=== PATIENT | female | born 1945 | race Caucasian/White ===

== ENCOUNTER 2023-11-29 10:46 | Emergency (ER) | payer MEDICARE, OTHER, SELFPAY ==
[2023-11-29 10:52] VITALS: BP 163/80
--- NOTE | 2023-11-29 11:53 | ED.GENMED ---
History of Present Illness
<Neetu Lomax PA-C - Last Filed: 11/29/23 15:11>
General
Chief Complaint: Bowel Problem
Source: patient
Exam Limitations: none
Time Seen by Provider: 11/29/23 11:53
Nursing documentation reviewed up to this point in time: agreed with
Travel History
Have you had any contact with someone who has COVID-19?: No
Do you have any symptoms of coronavirus? Fever > 100 degrees, chills, cough, shortness of breath, sore throat, loss of taste or smell, muscle aches, or headache?: No
History of Present Illness
History of Present Illness:
78-year-old female with a past medical history of hypertension, coronary artery disease, bladder cancer, GERD presenting emergency department today with concerns of constipation and rectal pain x 1 day. Patient states that she feels that there is a
a lot of stool in her rectum and she cannot effectively move her bowels. Patient states that her last bowel movement was yesterday, and she states that she usually has regular bowel movements however, today she is so much discomfort when trying to
strain, and feels that there is stool about to come out but she cannot quite get it out. Patient states that she normally takes a fiber supplement daily, and she takes Colace sometimes. She took Colace this morning which did not help. Patient's
rectal pain started today. Patient does have a history of hemorrhoids, for which she occasionally will have pain and she will use hydrocortisone cream. She states that she is not had rectal pain the past few days and just started today. Patient
denies fevers or chills, nausea or vomiting, abdominal pain. 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
Past History
<Neetu Lomax PA-C - Last Filed: 11/29/23 15:11>
Past History
ED Past Medical History: GERD, HTN and Other (Cataracts, colitis, glaucoma)
ED Past Surgical History: Orthopedic (bilateral knee replacements)
Social History
Tobacco: Non-smoker
Personal: Single
Living: with family
Review of Systems
<Neetu Lomax PA-C - Last Filed: 11/29/23 15:11>
Review of Systems
All Other Systems: ROS reviewed and negative except as documented in HPI and ROS
Phy Exam
<Neetu Lomax PA-C - Last Filed: 11/29/23 15:11>
Physical Exam
Physical Exam:
General: Patient is well appearing, and in no acute distress
Skin: Warm and dry, no rashes or lesions
Head: Atraumatic, normocephalic
Cardiac: Regular rate and rhythm, no murmur
Pulm: Normal respiratory effort, no wheezes, rales, rhonchi
Abdomen: Patient has no abdominal tenderness to palpation
Rectal: There redness within the intergluteal folds. There is no tenderness palpation of the intergluteal fold. No palpable areas of fluctuance. No obvious perirectal abscess, no anal fissure/tear. No expression of internal hemorrhoid with
bearing down. No obvious external hemorrhoid. Rectal fault with stool, rectum disimpacted, stool loosened.
Neuro: AAOx3. CN II-XII intact.
Course
<Neetu Lomax PA-C - Last Filed: 11/29/23 15:11>
Vital Signs
Initial and Last Documented VS:
Initial Vital Signs
Temp Pulse Resp BP Pulse Ox
98.0 F 110 16 163/80 96
11/29/23 10:52 11/29/23 10:52 11/29/23 10:52 11/29/23 10:52 11/29/23 10:52
Last Documented Vital Signs
Temp Pulse Resp BP Pulse Ox
98.0 F 98 17 160/78 97
11/29/23 10:52 11/29/23 14:43 11/29/23 14:43 11/29/23 14:43 11/29/23 14:43
<Eugenio Camacho MD - Last Filed: 11/29/23 15:12>
Vital Signs
Initial and Last Documented VS:
Initial Vital Signs
Temp Pulse Resp BP Pulse Ox
98.0 F 110 16 163/80 96
11/29/23 10:52 11/29/23 10:52 11/29/23 10:52 11/29/23 10:52 11/29/23 10:52
Last Documented Vital Signs
Temp Pulse Resp BP Pulse Ox
98.0 F 98 17 160/78 97
11/29/23 10:52 11/29/23 14:43 11/29/23 14:43 11/29/23 14:43 11/29/23 14:43
<Neetu Lomax PA-C - Last Filed: 11/29/23 15:11>
MDM/Problems Addressed
Differential Diagnosis Includes:
Constipation, perirectal abscess, thrombosed hemorrhoid, anal fissure, rectal cancer
MDM/Problems Addressed:
rectal pressure
constipation
Chronic conditions affecting care: HTN and CAD
Acute Exacerbation and/or Progression of Chronic Illness: HTN
<Neetu Lomax PA-C - Last Filed: 11/29/23 15:11>
*Pulse Oximetry
Patient hypoxic: no
*Critical Care Note
Total Time (30-74mins, 75-104mins- exclusive of procedures): Not Applicable
<Neetu Lomax PA-C - Last Filed: 11/29/23 15:11>
Patient Management
Escalation/DeEscalation of care consider admission/obs:
78-year-old female with a past medical history of hypertension, coronary artery disease, bladder cancer, GERD presenting emergency department today with concerns of constipation and rectal pain x 1 day. Patient states that she feels that there is a
a lot of stool in her rectum and she cannot effectively move her bowels. On exam, patient has no abdominal tenderness, her vitals are stable, she has no perirectal abscess, new gluteal rash, and has a rectal vault full with stool. Patient was
disimpacted, lots of stool was expressed. No obvious hemorrhoid on exam. Patient was subsequently given enema which further helped to move her bowels and she had a full bowel movement. Patient feels well now. Patient stable for discharge. She
will follow up with her primary care provider and her GI doc.
ED Attending Note
<Neetu Lomax PA-C - Last Filed: 11/29/23 15:11>
-
Portions of this chart may have been created with voice recognition software.� Occasional wrong word or��sound alike� substitutions may have occurred due to the inherent limitations of voice recognition software.
<Eugenio Camacho MD - Last Filed: 11/29/23 15:12>
ED Attending Note
Patient seen and examined by attending physician: Yes
I performed the substantive portion of visit, reviewed & personally made and approve the management plan that is documented in note by myself or MARIA R.: Yes
ED Attending Note:
Rectal pressure and pain. Mostly when moving her bowels. Feels like she is blocked up. No abdominal pain nausea vomiting or other complaints. Patient was seen after her disimpaction and enema. Appears well and has some rectal pressure but no
other complaints
She is warm and dry perfusing well. Abdomen nontender. No distention. No respiratory distress. Good regular pulses. Rectal exam no obvious abnormalities. She has some perirectal inflammatory changes but no masses no large hemorrhoid. Stable
for discharge to follow-up
Discharge Plan
Departure
Patient Disposition: Home (Routine Discharge)
Date of Disposition: 11/29/23
Time of Disposition: 14:10
Patient with high blood pressure during this ER visit?: Yes
Condition: Good
Discharge Problem:
Fecal impaction
Instructions: Constipation in adults, Fecal Impaction (DC), BLOOD PRESSURE
Prescriptions:
No Action
guar gum 1 PKT packet
1 pkt PO DAILY
esomeprazole magnesium [Nexium] 40 MG capsule,delayed release(DR/EC)
40 mg PO DAILY
budesonide 3 MG capsule,delayed,extend.release
6 mg PO DAILY
tafluprost (PF) [Zioptan (PF)] 1 EACH dropperette
1 drp BOTH EYES HS
cranberry ijrp-F-vlxsggph coag [Stdrqljsu-Streluvxv-Ugzyekg C] 1 EACH tablet
1 ea PO DAILY
coenzyme Q10-vit E-vit E mixed 1 EACH capsule
1 ea PO DAILY
dorzolamide-timolol 1 DROP drops
1 drp BOTH EYES BID
cholecalciferol (vitamin D3) 1,000 UNITS tablet
1,000 units PO DAILY
atorvastatin 40 MG tablet
40 mg PO QPM Qty: 30 3RF
aspirin 81 MG tablet,chewable
81 mg PO DAILY 0RF
ticagrelor [Brilinta] 90 MG tablet
90 mg PO BID Qty: 60 3RF
metoprolol succinate 25 MG tablet extended release 24 hr
25 mg PO QPM
potassium chloride [Klor-Con] 20 MEQ packet
20 meq PO DAILY
furosemide [Lasix] 20 MG tablet
20 mg PO DAILY
guar gum 1 PKT packet
1 pkt PO BID
midodrine 5 MG tablet
5 mg PO TID@0800,1400,2200 0RF
metronidazole 500 MG tablet
500 mg PO Q8 Qty: 18 0RF
sulfamethoxazole-trimethoprim 1 TABLET tablet
1 tab PO BID Qty: 12 0RF
ferrous sulfate [FeroSul] 325 MG tablet
325 mg PO TID 0RF
Referrals:
Jean Goldstein DO [Family Provider] -
Activity Restrictions/Additional Instructions:
Please continue fiber supplementation daily.
Please follow-up with your supervisor toy assembly, please follow-up with your primary care provider.
Please return emergency department should you experience rectal bleeding, abdominal pain, dizziness, lightheadedness, chest pain, shortness of breath or other concerning signs or symptoms.
Interventions
Interventions:
*Risk Screen - Suicide Last Done: 11/29/23 12:02
*General Assessment Last Done: 11/29/23 12:02
*Neglect/Abuse Screening Last Done: 11/29/23 12:02
*ED COVID-19 Vaccine History Last Done: 11/29/23 10:52
*Nursing Disposition Last Done: 11/29/23 14:44
OH-Xauots-Pzbmsdhkqw Assessment Last Done: 11/29/23 12:10
Discharge Date and Time
Discharge Date/Time: 11/29/23 14:45
[2023-11-29 12:01] VITALS: BMI 27.2
[2023-11-29 14:43] VITALS: BP 160/78
== END 2023-11-29 14:45 | disposition home or self-care (01) ==
LOC: EMR 10:46
PROVIDERS: EMERGENCY PHYSICIAN Emergency Medicine; FAMILY PHYSICIAN Family Medicine
DX: K56.41 Fecal impaction (principal); I10 Essential (primary) hypertension; I25.10 Atherosclerotic heart disease of native coronary artery without angina pectoris; K21.9 Gastro-esophageal reflux disease without esophagitis; K52.9 Noninfective gastroenteritis and colitis, unspecified; H40.9 Unspecified glaucoma; M81.0 Age-related osteoporosis without current pathological fracture; M48.00 Spinal stenosis, site unspecified; I25.2 Old myocardial infarction; Z79.82 Long term (current) use of aspirin; Z95.5 Presence of coronary angioplasty implant and graft; Z96.653 Presence of artificial knee joint, bilateral; Z85.54 Personal history of malignant neoplasm of ureter; Z85.89 Personal history of malignant neoplasm of other organs and systems; Z85.51 Personal history of malignant neoplasm of bladder; Z87.891 Personal history of nicotine dependence; Z88.1 Allergy status to other antibiotic agents; Z88.0 Allergy status to penicillin; Z88.2 Allergy status to sulfonamides
CPT/HCPCS: 99282

== ENCOUNTER 2023-12-22 10:51 | Emergency (ER) | payer MEDICARE, OTHER, SELFPAY ==
[2023-12-22 11:00] VITALS: BP 157/70
[2023-12-22 14:00] VITALS: BP 149/73
--- NOTE | 2023-12-22 16:16 | ED.GENMED ---
History of Present Illness
General
Chief Complaint: Bowel Problem
Source: patient
Time Seen by Provider: 12/22/23 12:54
Travel History
Have you had any contact with someone who has COVID-19?: No
Do you have any symptoms of coronavirus? Fever > 100 degrees, chills, cough, shortness of breath, sore throat, loss of taste or smell, muscle aches, or headache?: No
History of Present Illness
History of Present Illness:
78-year-old female who presents feeling constipated. States this has happened before. She states sometimes she has loose bowels at home so has been taking antidiarrheals. She was advised last time to take MiraLAX. She states she feels pressure
in her rectum.
Past History
Past History
ED Past Medical History: GERD, HTN and Other (Cataracts, colitis, glaucoma)
ED Past Surgical History: Orthopedic (bilateral knee replacements)
Social History
Tobacco: Non-smoker
Personal: Single
Living: with family
Phy Exam
Physical Exam
Physical Exam:
CONSTITUTIONAL Patient alert and oriented to person, place and time. Well-appearing. Vital signs reviewed.
HEAD atraumatic, normocephalic.
EYES eyelids normal to inspection, Extraocular muscles intact, Conjunctiva normal, Sclera normal.
NECK normal range of motion, Trachea midline, no jugular venous distention.
RESPIRATORY CHEST No respiratory distress noted, Chest expansion equal,
ABDOMEN abdomen nontender, Bowel sounds normal. No distention.
Rectal exam soft stool noted in vault, no blood
BACK normal inspection, no obvious deformities
UPPER EXTREMITY range of motion normal, Motor strength normal, no cyanosis, no edema.
LOWER EXTREMITY range of motion normal, Motor strength normal, no cyanosis, no edema.
NEURO Speech normal, No focal motor deficits, Darcy coma scale 15, Memory normal, Cranial Nerves intact to screening exam.
SKIN skin warm, dry, and normal in color.
PSYCHIATRIC patient oriented to person place and time, Normal affect.
Course
Orders/Labs/Results
Orders:
Orders
12/22/23 12:54
Abdomen Xray - 1 View [CR Abdomen - 1 View] Urgent
Comment:
Reason For Exam: abd pain
12/22/23 13:50
Enema- Treatment ONCE
Type: Milk of Molasses
Vital Signs
Initial and Last Documented VS:
Initial Vital Signs
Temp Pulse Resp BP Pulse Ox
98.0 F 72 18 157/70 99
12/22/23 11:00 12/22/23 11:00 12/22/23 11:00 12/22/23 11:00 12/22/23 11:00
Last Documented Vital Signs
Temp Pulse Resp BP Pulse Ox
97.8 F 80 18 174/90 96
12/22/23 17:08 12/22/23 17:08 12/22/23 17:08 12/22/23 17:08 12/22/23 17:08
MDM/Problems Addressed
MDM/Problems Addressed:
Rectal impaction, constipation
*Radiology
Radiology exam reviewed: preliminary read by ED provider (No free air, constipation)
*Pulse Oximetry
Patient hypoxic: no
*Critical Care Note
Total Time (30-74mins, 75-104mins- exclusive of procedures): Not Applicable
Data Reviewed
Source: patient
Further Testing Considered But Not Given:
Considered CT but abdomen benign
Patient Management
Escalation/DeEscalation of care consider admission/obs:
Symptoms resolved after enema. Appears well. Okay for discharge. Recommend MiraLAX and to avoid antidiarrheals. Advise GI follow-up
ED Attending Note
-
Portions of this chart may have been created with voice recognition software.� Occasional wrong word or��sound alike� substitutions may have occurred due to the inherent limitations of voice recognition software.
Discharge Plan
Departure
Patient Disposition: Home (Routine Discharge)
Date of Disposition: 12/22/23
Time of Disposition: 16:16
Patient with high blood pressure during this ER visit?: Yes
Discharge Problem:
Constipation
Instructions: Constipation, Adult (DC), BLOOD PRESSURE
Prescriptions:
No Action
guar gum 1 PKT packet
1 pkt PO DAILY
esomeprazole magnesium [Nexium] 40 MG capsule,delayed release(DR/EC)
40 mg PO DAILY
budesonide 3 MG capsule,delayed,extend.release
6 mg PO DAILY
tafluprost (PF) [Zioptan (PF)] 1 EACH dropperette
1 drp BOTH EYES HS
cranberry jftf-L-iwoszmdu coag [Djadefkxl-Wnbuyalvd-Gdhsigz C] 1 EACH tablet
1 ea PO DAILY
coenzyme Q10-vit E-vit E mixed 1 EACH capsule
1 ea PO DAILY
dorzolamide-timolol 1 DROP drops
1 drp BOTH EYES BID
cholecalciferol (vitamin D3) 1,000 UNITS tablet
1,000 units PO DAILY
atorvastatin 40 MG tablet
40 mg PO QPM Qty: 30 3RF
aspirin 81 MG tablet,chewable
81 mg PO DAILY 0RF
ticagrelor [Brilinta] 90 MG tablet
90 mg PO BID Qty: 60 3RF
metoprolol succinate 25 MG tablet extended release 24 hr
25 mg PO QPM
potassium chloride [Klor-Con] 20 MEQ packet
20 meq PO DAILY
furosemide [Lasix] 20 MG tablet
20 mg PO DAILY
guar gum 1 PKT packet
1 pkt PO BID
midodrine 5 MG tablet
5 mg PO TID@0800,1400,2200 0RF
metronidazole 500 MG tablet
500 mg PO Q8 Qty: 18 0RF
sulfamethoxazole-trimethoprim 1 TABLET tablet
1 tab PO BID Qty: 12 0RF
ferrous sulfate [FeroSul] 325 MG tablet
325 mg PO TID 0RF
Referrals:
Jean Goldstein DO [Family Provider] -
Activity Restrictions/Additional Instructions:
Please avoid antidiarrheals. Please use MiraLAX daily until stools are soft. Please see your doctor or gastroenterology in the next 3 to 5 days for follow-up and reevaluation. Return to [facility] for abdominal pain, fevers, vomiting or any other
concerns.
Interventions
Interventions:
*Risk Screen - Suicide Last Done: 12/22/23 14:46
*General Assessment Last Done: 12/22/23 14:46
*Neglect/Abuse Screening Last Done: 12/22/23 14:47
ED- Fall Risk Assessment Last Done: 12/22/23 14:48
*ED COVID-19 Vaccine History Last Done: 12/22/23 14:46
*Nursing Disposition Last Done: 12/22/23 17:09
HQ-Aqcveo-Pafnnrsaxo Assessment Last Done: 12/22/23 14:47
Discharge Date and Time
Discharge Date/Time: 12/22/23 17:10
Print Language: HUNGARIAN
[2023-12-22 17:08] VITALS: BP 174/90
== END 2023-12-22 17:10 | disposition home or self-care (01) ==
LOC: EMR 10:51
PROVIDERS: EMERGENCY PHYSICIAN Emergency Medicine; FAMILY PHYSICIAN Family Medicine
DX: K59.00 Constipation, unspecified (principal); I10 Essential (primary) hypertension
CPT/HCPCS: 99283; 74018

== ENCOUNTER 2024-09-02 12:09 | Emergency (ER) | payer MEDICARE, OTHER, SELFPAY ==
[2024-09-02 12:12] VITALS: BP 167/68
[2024-09-02 13:35] VITALS: BMI 29.5
--- NOTE | 2024-09-02 13:39 | ED.GENMED ---
History of Present Illness
General
Chief Complaint: Urinary Symptoms
Source: patient
Time Seen by Provider: 09/02/24 13:06
History of Present Illness
History of Present Illness:
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
presenting to the emergency department at request of primary care provider after for the last few weeks patient has been dealing with urinary symptoms and treated with oral antibiotics at urgent care, had a new urinalysis and culture done a few days
ago by primary care provider which showed multidrug-resistant ESBL E. coli and was recommended to come to the ER for IV antibiotic infusions. Patient stating currently she feels quite well and is denying any urinary frequency/urgency but does still
note some discomfort within the vaginal region. She denies any fevers or flank pain, vomiting, nausea, bowel changes. No other concerns at this time.
Past History
Past History
ED Past Medical History: GERD, HTN and Other (Cataracts, colitis, glaucoma)
ED Past Surgical History: Orthopedic (bilateral knee replacements)
Social History
Tobacco: Non-smoker
Alcohol: None
Drug: None
Personal: Single
Living: with family
Review of Systems
Review of Systems
All Other Systems: ROS reviewed and negative except as documented in HPI and ROS
Phy Exam
Physical Exam
Physical Exam:
GENERAL: Alert , in no apparent distress
EYE: clear conjunctiva b/l
HEAD: NCAT
ENT: o/p clr, mmm.
ABDOMEN: Soft, without focal tenderness, no r/g, no cvat
NEUROLOGICAL: Alert and oriented
SKIN: Warm and dry, skin intact.
MUSCULOSKELETAL: No edema, well perfused.
PSYCH: Normal and appropriate interaction.
Scores
Heart Failure Risk
Heart Failure Risk Score: Not Applicable
Heart Score for Chest Pain Patients
STEMI patient?: Not applicable
Withdrawal Assessment of Alcohol
Withdrawal Assessment Completed?: Not applicable
Course
Orders/Labs/Results
Orders:
Orders
09/02/24 13:32
Case Management Consult ONCE
Case Management Consult: Infusion Department
09/02/24 13:34
Urinalysis Reflex To Culture Urgent
Date Specimen was Collected: 09/02/24
Time Specimen was Collected: 13:33
Urine Microscopic Reflex Cult Urgent
Urine Culture Urgent
JIMBO Source: U
Specimen Description:
Date Specimen was Collected: 09/02/24
Time Specimen was Collected: 13:33
09/02/24 14:08
Basic Metabolic Panel Urgent
Complete Blood Count/With Diff Urgent
09/02/24 14:44
Ertapenem [Invanz] 1,000 mg 0.9% Sodium Chloride [Nss] 50 ml IV NOW
Abnormal Lab Results
09/02/24 09/02/24
13:34 14:08
RBC 3.56 L 10^6/uL
(4.20-5.40)
Hgb 11.1 L g/dL
(12.0-16.0)
Hct 34.7 L %
(37.0-47.0)
MCH 31.2 H pg
(27.0-31.0)
MCHC 32.0 L g/dL
(33.0-37.0)
MPV 10.7 H fL
(7.4-10.4)
Absolute Lymphs (auto) 1.0 L 10^3/uL
(1.2-3.4)
Absolute Monos (auto) 0.7 H 10^3/uL
(0.1-0.6)
Absolute Eos (auto) 1.7 H 10^3/uL
(0-0.7)
Lymphocytes % 11.5 L %
(20.5-51.1)
Eosinophils % 19.4 H %
(0-6)
BUN 26 H mg/dl
(7-17)
Ur Occult Blood Reflex Trace A
(Negative)
Urine Nitrite (Reflex) Positive A
(Negative)
Leukocyte Esterase Rfl 2+ A
(Negative)
Urine WBC (Reflex) 80-90 A /HPF
(0-5)
Urine Bacteria (Reflex) Many A
(Negative)
09/02/24 14:08
09/02/24 14:08
Vital Signs
Initial and Last Documented VS:
Initial Vital Signs
Temp Pulse Resp BP Pulse Ox
97.9 F 78 18 167/68 100
09/02/24 12:12 09/02/24 12:12 09/02/24 12:12 09/02/24 12:12 09/02/24 12:12
Last Documented Vital Signs
Temp Pulse Resp BP Pulse Ox
97.9 F 76 18 152/81 99
09/02/24 12:12 09/02/24 16:00 09/02/24 16:00 09/02/24 16:00 09/02/24 16:00
MDM/Problems Addressed
Differential Diagnosis Includes:
Multidrug-resistant urinary tract infection, currently no symptoms to suggest pyelonephritis or sepsis
MDM/Problems Addressed:
79-year-old female presenting to the ER at request of primary care provider for evaluation and treatment of multidrug-resistant ESBL E. coli urinary tract infection. Patient brought her culture report from the urgent care which she also states was
the same as the 1 done by her primary care provider which does show susceptibilities to ertapenem, meropenem and Bactrim however patient has a sulfa allergy and unable to tolerate Bactrim. She had finished a dose of ciprofloxacin earlier in the
week last. Primary care provider recommended to come to the ER for IV antibiotics and possible admission or possibility to arrange for outpatient infusion or home infusions. I notified infectious disease who agrees with this plan and would
recommend a 10 to 14-day course of ertapenem. Will consult with case management to see about arranging for the outpatient treatment. If able to do so we will arrange for patient to obtain a midline or PICC line in the ER. Disposition pending.
Chronic conditions affecting care: Cancer
Acute Exacerbation and/or Progression of Chronic Illness: Other (Urinary tract infections)
*Pulse Oximetry
Patient hypoxic: no
*Critical Care Note
Total Time (30-74mins, 75-104mins- exclusive of procedures): Not Applicable
Data Reviewed
Review of Other/Old Records Reveals: Labs and Records
Patient Management
Social determinants of health affecting care: Strong social support
Discussion with other providers: PCP and [employer]
Escalation/DeEscalation of care consider admission/obs:
Case management was able to arrange for patient to have home infusion however they would be unable to come out until September 05 due to the holiday. Patient does not wish to stay in the hospital. She will return to the emergency department on
September 03 and for the 1 g Invanz infusions and then can be discharged back home. Patient and family are aware of return precautions to the emergency department. Stable for discharge home.
ED Attending Note
-
Portions of this chart may have been created with voice recognition software.� Occasional wrong word or��sound alike� substitutions may have occurred due to the inherent limitations of voice recognition software.
Discharge Plan
Departure
Patient Disposition: Home (Routine Discharge)
Date of Disposition: 09/02/24
Time of Disposition: 15:45
Patient with high blood pressure during this ER visit?: Yes
Discharge Problem:
Complicated urinary tract infection
Instructions: Urinary Tract Infection, Adult (DC)
Prescriptions:
No Action
guar gum 1 PKT packet
1 pkt PO DAILY
esomeprazole magnesium [Nexium] 40 MG capsule,delayed release(DR/EC)
40 mg PO DAILY
budesonide 3 MG capsule,delayed,extend.release
6 mg PO DAILY
tafluprost (PF) [Zioptan (PF)] 1 EACH dropperette
1 drp BOTH EYES HS
cranberry wnkv-V-dymdhnzf coag [Gmfhdmtal-Lucsgjnry-Rystrzl C] 1 EACH tablet
1 ea PO DAILY
coenzyme Q10-vit E-vit E mixed 1 EACH capsule
1 ea PO DAILY
dorzolamide-timolol 1 DROP drops
1 drp BOTH EYES BID
cholecalciferol (vitamin D3) 1,000 UNITS tablet
1,000 units PO DAILY
atorvastatin 40 MG tablet
40 mg PO QPM Qty: 30 3RF
aspirin 81 MG tablet,chewable
81 mg PO DAILY 0RF
ticagrelor [Brilinta] 90 MG tablet
90 mg PO BID Qty: 60 3RF
metoprolol succinate 25 MG tablet extended release 24 hr
25 mg PO QPM
potassium chloride [Klor-Con] 20 MEQ packet
20 meq PO DAILY
furosemide [Lasix] 20 MG tablet
20 mg PO DAILY
guar gum 1 PKT packet
1 pkt PO BID
midodrine 5 MG tablet
5 mg PO TID@0800,1400,2200 0RF
metronidazole 500 MG tablet
500 mg PO Q8 Qty: 18 0RF
sulfamethoxazole-trimethoprim 1 TABLET tablet
1 tab PO BID Qty: 12 0RF
ferrous sulfate [FeroSul] 325 MG tablet
325 mg PO TID 0RF
Referrals:
Jean Goldstein DO [Family Provider] -
Interventions
Interventions:
*Risk Screen - Suicide Last Done: 09/02/24 12:12
*General Assessment Last Done: 09/02/24 12:12
*Neglect/Abuse Screening Last Done: 09/02/24 12:12
ED- Fall Risk Assessment Last Done: 09/02/24 17:18
*ED COVID-19 Vaccine History Last Done: 09/02/24 13:35
*Nursing Disposition Last Done: 09/02/24 17:18
ED-Female Genitourinary Assessment Last Done: 09/02/24 13:35
Discharge Date and Time
Discharge Date/Time: 09/02/24 17:00
Print Language: GREEK
[2024-09-02 14:00] VITALS: BP 163/71
[2024-09-02 14:09] LABS: Urine Albumin Trace (Neg - Trace); Urine Bilirubin Negative (Negative); Urine Character Slightly Cloudy (Clear); Urine Color Yellow; Urine Glucose Negative (Negative); Urine Ketone Negative (Negative); Urine Leukocyte 2+ (Negative); Urine Nitrite Positive (Negative); Urine Occult Blood Trace (Negative); Urine Urobilinogen Negative (Neg - 1+)
--- NOTE | 2024-09-02 14:14 | CM ---
Addendum entered by Kirsten Painting RN 09/06/24 12:33:
CM received called from patient's hosiery repairer Clarisse [phone]. Clarisse stated that [facility] has concerns about patient and caregiver's ability to do home IV antibiotics. [facility] is going to see patient through the weekend for her doses and
plan to transition to OID on Monday. Clarisse stated that PCP, who sent patient into hospital for IV antibiotics, is now refusing to write a script to set up outpatient infusion services. CM faxed original script to [facility] to assist with planning.
CM spoke with Steffen, clinical nurse nurse care manager, at [facility] who confirmed that patient will be seen through the weekend. CM advised that PCP is unwilling to write script for patient's OID services. Kirk will follow up with Clarisse at patient's PCP. CM
will await update.
Addendum entered by Kirsten Painting RN 09/02/24 16:46:
[facility] will deliver medication and supplies on 09/05. [facility] is also able to see patient on 09/05. ED PA is agreeable to provide doses for 09/03 and 09/04 in the emergency room. CM confirmed plan with Nay from [facility] and Joan from [facility].
Patient and caregiver are agreeable to plan.
Addendum entered by Kirsten Painting RN 09/02/24 15:27:
[facility] can accept. [facility] is not able to service patient tomorrow. CM sent referral to [facility]
Addendum entered by Kirsten Painting RN 09/02/24 14:40:
CM updated referrals with midline information and IV antibiotic script.
Original Note:
CM spoke with Joan from [facility]. CM sent referral via [facility] to [facility] and [facility]. CM awaiting call back from Joan at [facility].
[2024-09-02 14:16] LABS: Urine Squamous Cell 0-2 /LPF (Few); Urine White Cell 80-90 /HPF (0-5)
[2024-09-02 14:17] LABS: Urine Bacteria Many (Negative); Urine Red Blood Cell 0-2 /HPF (0-2)
[2024-09-02 14:30] LABS: Blood Urea Nitrogen 26 mg/dl (7-17); Calcium 9.4 mg/dl (8.4-10.2); Carbon Dioxide 26 mmol/L (22-30); Chloride 104 mmol/L (98-107); Estimated Creatinine Clearance 35 ml/min; Glucose 94 mg/dl (70-99); Potassium 4.1 mmol/L (3.5-5.1); Sodium 136 mmol/L (135-145)
[2024-09-02 14:34] LABS: White Blood Cell Count 8.8 10^3/uL (4.8-10.8)
[2024-09-02 14:35] LABS: % Basophils 0.8 % (0-2); % Eosinophils 19.4 % (0-6); % Immature Granulocytes 0.3 % (0-0.5); % Lymphocytes 11.5 % (20.5-51.1); % Monocytes 8.1 % (1.7-9.3); % Neutrophils 59.9 % (42.2-75.2); Absolute Basophils 0.1 10^3/uL (0-0.2); Absolute Eosinophils 1.7 10^3/uL (0-0.7); Absolute Monocytes 0.7 10^3/uL (0.1-0.6); Absolute Neutrophils 5.3 10^3/uL (1.4-6.5); Hematocrit 34.7 % (37.0-47.0); Hemoglobin 11.1 g/dL (12.0-16.0); Mean Corpuscular Hgb 31.2 pg (27.0-31.0); Mean Corpuscular Volume 97.5 fL (81.0-99.0); Nucleated Red Blood Cells % 0 %; Red Blood Cell Count 3.56 10^6/uL (4.20-5.40); Red Cell Dist. Width 14.2 % (11.5-14.5)
[2024-09-02 14:57] LABS: Platelet Count 144 10^3/uL (130-400)
[2024-09-02 14:58] LABS: Mean Platelet Volume 10.7 fL (7.4-10.4)
[2024-09-02] MEDS: INVANZ 60 MG IV (15:18)
[2024-09-02 16:00] VITALS: BP 152/81
== END 2024-09-02 17:00 | disposition home or self-care (01) ==
LOC: EMR 12:09
PROVIDERS: Physician Assistant Medical; EMERGENCY PHYSICIAN Emergency Medicine; FAMILY PHYSICIAN Family Medicine
DX: N39.0 Urinary tract infection, site not specified (principal); B96.20 Unspecified Escherichia coli [E. coli] as the cause of diseases classified elsewhere; I10 Essential (primary) hypertension; I25.2 Old myocardial infarction; K21.9 Gastro-esophageal reflux disease without esophagitis; Z88.2 Allergy status to sulfonamides; Z85.54 Personal history of malignant neoplasm of ureter; Z92.3 Personal history of irradiation
CPT/HCPCS: 96365; 99284; 80048; 81003; 81015; 85025; 87077; 87086; 87186; J1335

== ENCOUNTER 2024-09-03 08:59 | Emergency (ER) | payer MEDICARE, OTHER, SELFPAY ==
[2024-09-03 09:06] VITALS: BP 125/46
--- NOTE | 2024-09-03 09:13 | ED.GENMED ---
History of Present Illness
General
Chief Complaint: Prescription Refill
Source: patient
Time Seen by Provider: 09/03/24 09:04
History of Present Illness
History of Present Illness:
79-year-old female presents back to the emergency department for the second dose of her Invanz infusion. Patient was seen in this emergency department by myself yesterday where she was diagnosed with a complicated urinary tract infection that was
only susceptible to IV medications. Patient had home infusion set up by case management however they were unable to come out patient's home until September 05 due to the holidays. Patient has no concerns at this time.
Past History
Past History
ED Past Medical History: GERD, HTN and Other (Cataracts, colitis, glaucoma)
ED Past Surgical History: Orthopedic (bilateral knee replacements)
Social History
Tobacco: Non-smoker
Alcohol: None
Drug: None
Personal: Single
Living: with family
Review of Systems
Review of Systems
All Other Systems: ROS reviewed and negative except as documented in HPI and ROS
Phy Exam
Physical Exam
Physical Exam:
GENERAL: Alert , in no apparent distress
EYE: conjunctiva clear
Head: Normocephalic atraumatic
NECK: Supple,
ENT: mmm.
LUNGS: no acute respiratory distress
NEUROLOGICAL: Alert and oriented
SKIN: Warm and dry, skin intact.
MUSCULOSKELETAL: well perfused.
PSYCH: Normal and appropriate interaction.
Scores
Heart Failure Risk
Heart Failure Risk Score: Not Applicable
Heart Score for Chest Pain Patients
STEMI patient?: Not applicable
Withdrawal Assessment of Alcohol
Withdrawal Assessment Completed?: Not applicable
Course
Orders/Labs/Results
Orders:
Orders
09/03/24 09:08
Ertapenem [Invanz] 1,000 mg 0.9% Sodium Chloride [Nss] 50 ml IV NOW
Vital Signs
Initial and Last Documented VS:
Initial Vital Signs
Temp Pulse Resp BP Pulse Ox
98.2 F 60 17 125/46 98
09/03/24 09:06 09/03/24 09:06 09/03/24 09:06 09/03/24 09:06 09/03/24 09:06
Last Documented Vital Signs
Temp Pulse Resp BP Pulse Ox
98.2 F 60 17 125/46 98
09/03/24 09:06 09/03/24 09:06 09/03/24 09:06 09/03/24 09:06 09/03/24 09:06
MDM/Problems Addressed
MDM/Problems Addressed:
79-year-old female presenting back to the emergency department for second dose of her IV Invanz. Patient will be stable for discharge upon completion. She will come back to the emergency department tomorrow for third dose and then will have the
home infusion nurses come to her house for the remaining days. Patient continues to be aware of this plan and has no further concerns at this time.
*Pulse Oximetry
Patient hypoxic: no
*Critical Care Note
Total Time (30-74mins, 75-104mins- exclusive of procedures): Not Applicable
ED Attending Note
-
Portions of this chart may have been created with voice recognition software.� Occasional wrong word or��sound alike� substitutions may have occurred due to the inherent limitations of voice recognition software.
Discharge Plan
Departure
Patient Disposition: Home (Routine Discharge)
Date of Disposition: 09/03/24
Time of Disposition: 09:53
Patient with high blood pressure during this ER visit?: No
Discharge Problem:
Encounter for long-term (current) use of antibiotics
Prescriptions:
No Action
guar gum 1 PKT packet
1 pkt PO DAILY
esomeprazole magnesium [Nexium] 40 MG capsule,delayed release(DR/EC)
40 mg PO DAILY
budesonide 3 MG capsule,delayed,extend.release
6 mg PO DAILY
tafluprost (PF) [Zioptan (PF)] 1 EACH dropperette
1 drp BOTH EYES HS
cranberry mmse-Z-skjteblg coag [Klbixqyxf-Hixccsptd-Aipleej C] 1 EACH tablet
1 ea PO DAILY
coenzyme Q10-vit E-vit E mixed 1 EACH capsule
1 ea PO DAILY
dorzolamide-timolol 1 DROP drops
1 drp BOTH EYES BID
cholecalciferol (vitamin D3) 1,000 UNITS tablet
1,000 units PO DAILY
atorvastatin 40 MG tablet
40 mg PO QPM Qty: 30 3RF
aspirin 81 MG tablet,chewable
81 mg PO DAILY 0RF
ticagrelor [Brilinta] 90 MG tablet
90 mg PO BID Qty: 60 3RF
metoprolol succinate 25 MG tablet extended release 24 hr
25 mg PO QPM
potassium chloride [Klor-Con] 20 MEQ packet
20 meq PO DAILY
furosemide [Lasix] 20 MG tablet
20 mg PO DAILY
guar gum 1 PKT packet
1 pkt PO BID
midodrine 5 MG tablet
5 mg PO TID@0800,1400,2200 0RF
metronidazole 500 MG tablet
500 mg PO Q8 Qty: 18 0RF
sulfamethoxazole-trimethoprim 1 TABLET tablet
1 tab PO BID Qty: 12 0RF
ferrous sulfate [FeroSul] 325 MG tablet
325 mg PO TID 0RF
Interventions
Interventions:
*Risk Screen - Suicide Last Done: 09/03/24 09:01
*General Assessment Last Done: 09/03/24 09:01
*Neglect/Abuse Screening Last Done: 09/03/24 09:01
*ED COVID-19 Vaccine History Last Done: 09/03/24 09:01
*Nursing Disposition Last Done: 09/03/24 10:53
Discharge Date and Time
Discharge Date/Time: 09/03/24 10:54
Print Language: BRAZILIAN
[2024-09-03] MEDS: INVANZ 60 MG IV (09:28)
--- NOTE | 2024-09-03 10:52 | EDRN ---
Flushed midline 10 cc NSS; pt to return for infusion tomorrw.
== END 2024-09-03 10:54 | disposition home or self-care (01) ==
LOC: EMR 08:59
PROVIDERS: EMERGENCY PHYSICIAN Emergency Medicine; FAMILY PHYSICIAN Family Medicine
DX: N39.0 Urinary tract infection, site not specified (principal); I10 Essential (primary) hypertension
CPT/HCPCS: 99284; 96365; J1335

== ENCOUNTER 2024-09-04 08:57 | Emergency (ER) | payer MEDICARE, OTHER, SELFPAY ==
[2024-09-04 09:02] VITALS: BP 120/45
--- NOTE | 2024-09-04 10:57 | ED.GENMED ---
History of Present Illness
General
Chief Complaint: Urinary Symptoms
Source: patient
Exam Limitations: none
Time Seen by Provider: 09/04/24 10:34
Nursing documentation reviewed up to this point in time: agreed with
History of Present Illness
History of Present Illness:
79-year-old female presenting to the emergency department for additional dose of ertapenem. She has a complicated urinary tract infection and is requiring IV antibiotics. She was receiving a dose here today as she was not able to set up outpatient
treatments until after the holidays. She will have access tomorrow. She denies any additional concerns symptoms are improving. No fevers.
Past History
Past History
ED Past Medical History: GERD, HTN and Other (Cataracts, colitis, glaucoma)
ED Past Surgical History: Orthopedic (bilateral knee replacements)
Social History
Tobacco: Non-smoker
Alcohol: None
Drug: None
Personal: Single
Living: with family
Review of Systems
Review of Systems
Allergies reviewed?: Yes
All Other Systems: ROS reviewed and negative except as documented in HPI and ROS
Phy Exam
Physical Exam
Physical Exam:
GENERAL: Alert , in no apparent distress
EYE: pupils equal and reactive
NECK: Supple, no significant adenopathy.
ENT: o/p clr, mmm.
CARDIAC: Regular rate and rhythm .
LUNGS: Clear breath sounds bilaterally, no acute respiratory distress, no wheezes/rales/rhonchi
ABDOMEN: Soft, without focal tenderness, no r/g, no cvat
NEUROLOGICAL: Alert and oriented, no focal neuro deficits
SKIN: Warm and dry, skin intact.
MUSCULOSKELETAL: No edema, well perfused.
PSYCH: Normal and appropriate interaction.
Course
Orders/Labs/Results
Orders:
Orders
09/04/24 10:57
Ertapenem [Invanz] 1,000 mg 0.9% Sodium Chloride [Nss] 50 ml IV NOW
Vital Signs
Initial and Last Documented VS:
Initial Vital Signs
Temp Pulse Resp BP Pulse Ox
97.6 F 68 18 120/45 98
09/04/24 09:02 09/04/24 09:02 09/04/24 09:02 09/04/24 09:02 09/04/24 09:02
Last Documented Vital Signs
Temp Pulse Resp BP Pulse Ox
97.6 F 68 18 120/45 98
09/04/24 09:02 09/04/24 09:02 09/04/24 09:02 09/04/24 09:02 09/04/24 09:02
MDM/Problems Addressed
MDM/Problems Addressed:
79-year-old female very well-appearing in no distress presenting for additional IV antibiotic. She otherwise will follow-up as an outpatient for infusions starting tomorrow but considering today is a holiday she requires a dose here in the ER. No
additional concerns or complaints.
*Critical Care Note
Total Time (30-74mins, 75-104mins- exclusive of procedures): Not Applicable
ED Attending Note
-
Portions of this chart may have been created with voice recognition software.� Occasional wrong word or��sound alike� substitutions may have occurred due to the inherent limitations of voice recognition software.
Discharge Plan
Departure
Patient Disposition: Home (Routine Discharge)
Date of Disposition: 09/04/24
Time of Disposition: 12:02
Patient with high blood pressure during this ER visit?: No
Condition: Good
Covid-19: Not Applicable
Discharge Problem:
Complicated urinary tract infection
Instructions: Urinary Tract Infection, Adult (DC)
Prescriptions:
No Action
guar gum 1 PKT packet
1 pkt PO DAILY
esomeprazole magnesium [Nexium] 40 MG capsule,delayed release(DR/EC)
40 mg PO DAILY
budesonide 3 MG capsule,delayed,extend.release
6 mg PO DAILY
tafluprost (PF) [Zioptan (PF)] 1 EACH dropperette
1 drp BOTH EYES HS
cranberry yqfm-C-jjpzfzob coag [Ccjkqjmxk-Niyjdxvbt-Yugphnc C] 1 EACH tablet
1 ea PO DAILY
coenzyme Q10-vit E-vit E mixed 1 EACH capsule
1 ea PO DAILY
dorzolamide-timolol 1 DROP drops
1 drp BOTH EYES BID
cholecalciferol (vitamin D3) 1,000 UNITS tablet
1,000 units PO DAILY
atorvastatin 40 MG tablet
40 mg PO QPM Qty: 30 3RF
aspirin 81 MG tablet,chewable
81 mg PO DAILY 0RF
ticagrelor [Brilinta] 90 MG tablet
90 mg PO BID Qty: 60 3RF
metoprolol succinate 25 MG tablet extended release 24 hr
25 mg PO QPM
potassium chloride [Klor-Con] 20 MEQ packet
20 meq PO DAILY
furosemide [Lasix] 20 MG tablet
20 mg PO DAILY
guar gum 1 PKT packet
1 pkt PO BID
midodrine 5 MG tablet
5 mg PO TID@0800,1400,2200 0RF
metronidazole 500 MG tablet
500 mg PO Q8 Qty: 18 0RF
sulfamethoxazole-trimethoprim 1 TABLET tablet
1 tab PO BID Qty: 12 0RF
ferrous sulfate [FeroSul] 325 MG tablet
325 mg PO TID 0RF
Referrals:
Jean Goldstein DO [Family Provider] -
Activity Restrictions/Additional Instructions:
You came to the emergency department today for a subsequent dose of your IV antibiotics. Please follow-up tomorrow for continued dosing. Return to the emergency department for any worsening, new or concerning symptoms. If you have diarrhea you
can use Imodium as prescribed.
Interventions
Interventions:
*Risk Screen - Suicide Last Done: 09/04/24 10:59
*General Assessment Last Done: 09/04/24 10:58
*Neglect/Abuse Screening Last Done: 09/04/24 10:59
ED- Fall Risk Assessment Last Done: 09/04/24 10:59
*ED COVID-19 Vaccine History Last Done: 09/04/24 10:58
ED-Female Genitourinary Assessment Last Done: 09/04/24 10:59
Discharge Date and Time
Print Language: MOHAWK
[2024-09-04 10:58] VITALS: BMI 28.4
[2024-09-04] MEDS: INVANZ 60 MG IV (11:52)
== END 2024-09-04 12:32 | disposition home or self-care (01) ==
LOC: EMR 08:57
PROVIDERS: EMERGENCY PHYSICIAN Emergency Medicine; FAMILY PHYSICIAN Family Medicine
DX: N39.0 Urinary tract infection, site not specified (principal); I10 Essential (primary) hypertension; K21.9 Gastro-esophageal reflux disease without esophagitis; K52.9 Noninfective gastroenteritis and colitis, unspecified; H40.9 Unspecified glaucoma; F41.9 Anxiety disorder, unspecified; D50.9 Iron deficiency anemia, unspecified; G62.9 Polyneuropathy, unspecified; M81.0 Age-related osteoporosis without current pathological fracture; M48.00 Spinal stenosis, site unspecified; B02.9 Zoster without complications; I25.2 Old myocardial infarction; Z96.653 Presence of artificial knee joint, bilateral; Z95.5 Presence of coronary angioplasty implant and graft; Z85.42 Personal history of malignant neoplasm of other parts of uterus; Z79.82 Long term (current) use of aspirin; Z88.1 Allergy status to other antibiotic agents; Z88.0 Allergy status to penicillin; Z88.2 Allergy status to sulfonamides
CPT/HCPCS: 99284; 96365; J1335

== ENCOUNTER 2024-09-10 09:50 | Outpatient (RCR) | payer MEDICARE, OTHER, SELFPAY ==
[2024-09-09 08:35] VITALS: BP 134/48
[2024-09-09] MEDS: INVANZ 60 MG IV (08:44)
[2024-09-10 10:00] VITALS: BP 135/41
[2024-09-10] MEDS: INVANZ 60 MG IV (10:09)
== END 2024-09-10 11:08 | disposition home or self-care (01) ==
LOC: OID 09:50
PROVIDERS: ATTENDING PHYSICIAN Physician Assistant Medical
DX: N39.0 Urinary tract infection, site not specified (principal); B96.29 Other Escherichia coli [E. coli] as the cause of diseases classified elsewhere
CPT/HCPCS: 96365; J1335

== ENCOUNTER 2024-09-15 08:32 | Outpatient (RCR) | payer MEDICARE, OTHER, SELFPAY ==
[2024-09-11] MEDS: INVANZ 60 MG IV (08:10)
[2024-09-11 08:17] VITALS: BP 111/51
[2024-09-12 08:55] VITALS: BP 119/40
[2024-09-12] MEDS: INVANZ 60 MG IV (08:59)
[2024-09-13 09:20] VITALS: BP 115/33
[2024-09-13] MEDS: INVANZ 60 MG IV (09:25)
[2024-09-14] MEDS: INVANZ 60 MG IV (08:28)
[2024-09-14 09:37] VITALS: BP 101/47
[2024-09-15 08:30] VITALS: BP 107/37
[2024-09-15] MEDS: INVANZ 60 MG IV (08:47)
== END 2024-09-16 15:57 | disposition home or self-care (01) ==
LOC: OID 08:32
PROVIDERS: ATTENDING PHYSICIAN Physician Assistant Medical
DX: N39.0 Urinary tract infection, site not specified (principal); B96.29 Other Escherichia coli [E. coli] as the cause of diseases classified elsewhere; Z16.12 Extended spectrum beta lactamase (ESBL) resistance
CPT/HCPCS: 96365; J1335